=== PATIENT | male | born 1950 | race Two or more races ===

== ENCOUNTER 2021-12-31 07:32 | Emergency (ER) | payer MEDICARE ==
[~2021-12-31] VITALS: Ht 172.7 cm; Wt 82.0 kg
[2021-12-31 07:43] VITALS: BP 173/98
[2021-12-31 07:55] VITALS: BP 155/89
[2021-12-31 08:00] VITALS: BP 143/88
[2021-12-31 08:00] LABS: HEMOGLOBIN 15.7 g/dl (14.0-18.0); IMMATURE GRANULOCYTES 0.1 % (0.0-5.0); MEAN CELL VOLUME 88.6 fL CALC (80.0-100.0); MEAN CORPUSCULAR HGB 30.3 pG CALC (26.0-32.0); MEAN CORPUSCULAR HGB CONC 34.1 g/dL CAL (32.0-36.0); NEUT# 6.48 thou/uL (1.82-7.42); RED BLOOD COUNT 5.19 mill/uL (4.70-6.10); RED CELL DISTRI WIDTH 12.1 % (11.5-15.5)
[2021-12-31 08:02] LABS: URINE BILIRUBIN - DIPSTICK NEGATIVE (NEGATIVE); URINE BLOOD DIPSTICK MODERATE (NEGATIVE); URINE COLOR YELLOW; URINE GLUCOSE - DIPSTICK NEGATIVE (NEGATIVE); URINE KETONE NEGATIVE (NEGATIVE); URINE LEUK ESTERASE NEGATIVE (NEGATIVE); URINE PROTEIN - DIPSTICK NEGATIVE (NEG-TRACE)
[2021-12-31 08:03] LABS: URINE NITRITE - DIPSTICK NEGATIVE (Negative)
[2021-12-31 08:12] LABS: URINE AMORPH SEDIMENT FEW hpf (NONE-FER); URINE WBC 0-2 WBC/hpf (0-5)
[2021-12-31 08:24] LABS: ALBUMIN 4.6 g/dL (3.2-5.0); ALKALINE PHOSPHATASE 94 u/l (38-126); ANION GAP 14 (6-22 (CALC)); BILIRUBIN, TOTAL 1.9 mg/dL (0.0-1.4); BUN 15 mg/dL (8-23); BUN/CREATININE RATIO 16 (12-20 (CALC)); CARBON DIOXIDE 28 mmol/l (22-30); CHLORIDE 104 mmol/l (95-108); GFR FOR AFR.AMER. > 60 ML/MIN (>=60 (CALC)); GFR OTHER RACES > 60 ML/MIN (>=60 (CALC)); POTASSIUM 4.4 mmol/l (3.5-5.1); SGOT/AST 37 u/l (19-48); SODIUM 142 mmol/l (137-146); TOTAL PROTEIN 7.9 g/dL (6.3-8.2)
[2021-12-31 09:00] VITALS: BP 137/78
[2021-12-31 09:12] VITALS: BP 137/78
[2021-12-31] MEDS ORDERED: ZOFRAN4 MG/TAB PO (09:13)
[2021-12-31] MEDS ORDERED: TRAMADOL HYDROC50 M1 PO (09:13)
[2021-12-31] MEDS ORDERED: TORADOL PO (09:13)
[2021-12-31] MEDS ORDERED: TAMSULOSIN0.4 MG PO (09:13)
== END 2021-12-31 09:19 | disposition home or self-care (01) ==
LOC: ED 07:32
PROVIDERS: Family Medicine
DX: N13.2 Hydronephrosis with renal and ureteral calculous obstruction (principal); Z87.442 Personal history of urinary calculi